=== PATIENT | male | born 1970 | race Caucasian/White ===

== ENCOUNTER → 2022-02-18 07:36 | Outpatient (CLI) | payer OTHER, SELFPAY ==
--- NOTE | ~2022-02-18 | MR_ITS ---
EXAMINATION: MR shoulder RT wo con DATE: 02/18/2022 08:27 INDICATION: Anterior right shoulder pain. TECHNIQUE: Magnetic resonance imaging (MRI) of the right shoulder was performed without intravenous c ontrast. Sequences included axial PD-weighted FS FSE, coronal oblique PD-weighted FS FSE and T2-weigh shannon FS FSE, and sagittal oblique T2-weighted FS FSE and T1-weighted FSE. COMPARISON: Right shoulder radiographs 12/22/2021 FINDINGS: Coracoacromial arch: The acromion undersurface is curved in morphology (type II). There is severe acromioclavicular joint osteoarthritis. There is mild subacromial/subdeltoid bursitis. Rotator cuff: There is mild supraspinatus and infraspinatus tendinopathy. Teres minor tendon is normal. There is mi ld subscapularis tendinopathy. There is no asymmetric fatty atrophy of the rotator cuff muscle bellie s. Biceps tendon and glenoid labrum: Biceps tendon is in bicipital groove. Intra-articular biceps tendon is normal. The glenoid labrum is normal. Fluid: There is no glenohumeral joint effusion. Bones/cartilage: Glenoid cartilage is normal. Humeral head cartilage is normal. IMPRESSION: 1. Severe acromioclavicular joint osteoarthritis. 2. Mild rotator cuff tendinopathy. No tear. 3. Mild subacromial/subdeltoid bursitis. Reviewed, dictated and finalized at location A. ENTING CELLARS RECEIVER
== END ==
PROVIDERS: PCP Internal Medicine Infectious Disease; Visit Provider Orthopaedic Surgery
DX: M19.011 Primary osteoarthritis, right shoulder (principal); M75.51 Bursitis of right shoulder
CPT/HCPCS: 73221

== ENCOUNTER 2022-04-10 09:26 | Outpatient (CLI) | payer OTHER, SELFPAY ==
--- NOTE | 2022-04-10 10:00 | ECG_ITS ---
Measurements Intervals [place] Rate: 68 P: 35 ME: 158 QRS: -11 QRSD: 85 T: 28 QT: 374 QTc: 398 Interpretive Statements SINUS RHYTHM CONSIDER INFERIOR INFARCT, AGE INDETERMINATE BASELINE ARTIFACT- AVL, AVF, V1 ABNORMAL ECG NO PREVIOUS ECG AVAILABLE FOR COMPARISON Electronically Signed On 04-10-2022 9:49:51 PATIENT ACCESS MANAGER by Myron Jackson D.O.
== END 2022-04-10 09:27 | disposition home or self-care (01) ==
PROVIDERS: PCP Internal Medicine Infectious Disease; Visit Provider Orthopaedic Surgery
DX: Z01.810 Encounter for preprocedural cardiovascular examination (principal); E78.5 Hyperlipidemia, unspecified; R94.31 Abnormal electrocardiogram [ECG] [EKG]
CPT/HCPCS: 93005

== ENCOUNTER 2022-04-14 01:19 | Day surgery (SDC) | payer OTHER, SELFPAY ==
[2022-04-04 15:31] VITALS: BMI 27.1
--- NOTE | 2022-04-04 15:38 | PC.NURSE ---
Report to the Outpatient Waiting Room, entrance under the green pavilion located off [facility], at time 10:00 on date 04/14/22. Planned Procedure Time: 12:00. Time changes happen often and if your time is changed the preop area will call you the afternoon before. - You and your visitor will be asked to self-screen and do not enter if you have any COVID symptoms. - Only one visitor is requested with a max of two and NO children visitors are allowed at this time. - The patient visitor may be requested to leave or wait in car when not with patient due to distancing restrictions. - A mask is REQUIRED within the hospital. Patients may have clear liquids (water, carbonated beverages, clear teas, apple juice) until 3 hours prior to surgery with a maximum of 20 ounces. - No food from midnight until time of surgery Take the following medications with a SIP of water the morning of surgery: CYMBALTA, GABAPENTIN Medications to discontinue per physician: VITAMINS/SUPPLEMENTS Date to take last dose: 04/10/22 Please no make-up, nail croatian, hairspray, perfume, deodorant, or body powder the day of surgery. No jewelry (including any body piercings) or valuables the day of surgery, leave them at home. Please take a shower or bath the night before, or the morning of, surgery with an antibacterial soap. Wear comfortable, loose fitting clothing. - Jewelry must be removed prior to entering the operating room. Rings and piercings that are not removed may be cut off. - The hospital will not accept responsibility for valuables. - Please leave all valuables, including medications, at home the day of surgery. If you are going home after surgery, a licensed automobile drivers must drive you home. - NO public transportation without another adult if you receive anesthesia. - We recommend that an adult stay with you for 24 hours following discharge. - We also recommend that you do not drive, make important decision, drink alcoholic beverages, or take any drugs that were not prescribed by your health care provider for at least 24 hours after your discharge time. Follow any additional instructions given to you from your surgeon. If you or anyone in your household have experienced Covid symptoms in the past week, please notify your surgeon or the nurse liaison at the phone number below for possible testing. Telephone instructions given to PT - ANUM PARKER and asked if any additional questions and then verbalized understanding. Patient advised to call surgeon office or pre surgery nurse liaison [phone] if any additional questions.
--- NOTE | 2022-04-13 09:20 | WPDANESEPPF ---
Anes - Initial Pre Proc Eval Procedure: Operation Date: 04/14/22 12:00 Proposed Procedures p Right Arthroscopic Subacromial Decompression, Distal Clavicle Excision, Proceed as Indicated - Ananth Paz MD Date/Time: 04/13/22 09:20 Surgeon: Ananth Paz MD Pre Op Diagnosis: right shoulder impingement syndrome, ac joint arth Patient Data Age: 52 Gender: M Height: 1.83 m Weight: 90.72 kg Allergies Allergy/AdvReac Type Severity Reaction Status Date / Time No Known Allergies Allergy Verified 04/14/22 10:19 Home Medications Medication Instructions Recorded Confirmed Type atorvastatin 40 mg tablet 40 mg PO DAILY 12/08/21 04/14/22 History cetirizine 10 mg tablet (Zyrtec) 10 mg PO DAILY 12/08/21 04/14/22 History coenzyme Q10 30 mg capsule (CoQ-10) 30 mg PO DAILY 12/08/21 04/14/22 History duloxetine 20 mg capsule,delayed 20 mg PO DAILY 12/08/21 04/14/22 History release fluticasone propionate 50 1 spray intranasal DAILY 12/08/21 04/14/22 History mcg/actuation nasal spray,suspension (Children's Flonase Allergy Relief) gabapentin 400 mg capsule 400 mg PO DAILY 12/08/21 04/14/22 History olopatadine 665 mcg-mometasone 25 2 spray intranasal BID 12/08/21 04/04/22 History mcg/spray nasal spray Patient hx anesthesia problems: none Family hx anesthesia problems: none Results Review: All pre-operative results and documents have been reviewed as part of the pre-operative evaluation. [facility] Past Medical History Medical History (Updated 04/13/22 @ 09:20 by Freddy Ann DO) Chronic neck pain Hyperlipidemia Restless leg syndrome Rotator cuff impingement syndrome of right shoulder Tonsillitis and adenoiditis, chronic (~1972) Surgical History Surgical History H/O knee surgery left knee surgery 1984 S/P epidural steroid injection injection in the neck 2011 Family History Family History Unknown Cancer ALS (amyotrophic lateral sclerosis) Kidney disease Social History Social History Smoking status: Never smoker Alcohol intake: current Drinks per week: 4 Alcohol use details: 2-3 drinks Substance use: current Substance use type: marijuana Lack of Transportation: No Lack of Food: Never True Current Housing: I Have Housing Concerned About Future Housing: No Difficulty Paying Gas/Electric Bills: No Difficulty Paying for Meds: No Currently Unemployed: No Education: Bachelor's Degree Difficulty w/ Childcare or Family Care: No Living arrangements: with family Spiritual care concerns: No Anes - Eval Final PreProcedure Day of Procedure 04/13/22 09:20 Patient weight: overweight Heart: regular rate and rhythm Lungs: clear to auscultation Airway: Mallampati scale class II Neurological: alert and oriented Last oral intake: >/= 8 hours ASA classification: III Emergent: no Anesthetic plan: proceed Anesthesia type and monitoring: general ETT and standard monitoring Results Review: All pre-operative results and documents have been reviewed as part of the pre-operative evaluation. Informed Consent: The patient's anesthetic plan and its attendant risks and benefits were discussed with the patient/family/POA. Questions were solicited and answers provided to the satisfaction of the patient/family/POA.
[2022-04-14] VITALS (9 sets, daily range): BP systolic 113–150; BP diastolic 67–95; PULSE 66–77; RESP 13–16; TEMP 36.5–36.7; O2SAT 99–100
[2022-04-14] MEDS: ACETAMINOPHEN 500 MG TABLET 1000 MG PO (10:36)
[2022-04-14] MEDS: LACTATED RINGERS 1,000 ML 30 ML IV CONT ×2 (10:43→14:02)
[2022-04-14] MEDS: KETOROLAC 15 MG/ML VIAL (*BKC) IV PUSH (11:59)
--- NOTE | 2022-04-14 11:59 | WPDHPUPDATE1 ---
History and Physical Update Update Date/Time: 04/14/22 11:59 History and Physical has been reviewed, including an updated exam of the patient. There are NO changes in the patient's condition. Risks, benefits, and alternatives have been discussed and questions answered. Patient agrees to proceed with procedure.
--- NOTE | 2022-04-14 12:05 | WPDANESPNB ---
Anes - Peripheral Nerve Block Date/Time: 04/14/22 12:05 I have discussed with the patient/family/POA the placement of a peripheral nerve block for post-operative pain management, including associated risks, benefits, complications, and side effects. Alternative methods of post-operative analgesia were detailed. Questions were solicited and answers provided to the satisfaction of the patient/family/POA. Time-Out: A pre-procedural Time-Out was completed immediately before starting the procedure and confirmed: Patient Identification, Site, Procedure, Patient Position and the Availability of Requisite Equipment. Clinical Indications: Acute post-operative pain management requested by the operative surgeon. Nerve Block Insertion Note Anes-nerve block: interscalene right Patient position: supine Skin prep: chlorhexidine Needle: 22 gauge, stimulating, insulated echogenic needle. Needle length: 50 mm Technique: ultrasound Injectate: bupivacaine 0.5% with epi 5 mcg/ml (30cc- no epi) Observations: tolerated well Complications: none Procedure start time:: 1159 Procedure end time:: 1203
[2022-04-14] MEDS: ceFAZolin 2 GM/D5W 50 ML 2 GM/50 ML BAG IVPB (12:11)
--- NOTE | 2022-04-14 17:26 | W.PM.PROC2 ---
Procedure Note - Detailed Date of Procedure 04/14/22 Pre-op Diagnosis Right shoulder impingement syndrome, a/c joint arthrosis Post-op Diagnosis Other (1. Partial thickness rotator cuff tear 2. Impingement syndrome 3. A/C joint arthrosis) Procedure Performed Arthroscopic right shoulder 1. rotator cuff debridement 2. subacromial debridement 3. distal clavicle excision Surgeon Ananth Paz MD Ground Host/Hostess Daisy Lezama PA-C Anesthesia General and Regional ( interscalene block) Findings Low grade bursal and articular supraspinatus tears , less than 15% thickness. Low grade degenerative labral fraying and minimal humeral chondrosis posteriorly. Evidence for subacromial impingement. Description of Procedure Preoperative antibiotics were given. An interscalene block was administered in the preoperative area. The patient was bought brought to the operating room. A general anesthetic was administered. The patient was carefully positioned in the beach chair position. The head and neck were carefully positioned. The non operative extremity was also carefully positioned. The shoulder was prepped and draped in the usual sterile fashion. Examination was performed. Standard posterior and anterior arthroscopic portals were established. Inflow achieved with the arthroscopic pump using saline and epinephrine. The glenohumeral joint was carefully inspected. Debridemnet of the very low grade anterior cuff tear and mild anterior, superior and posterior labral degeneration was performed with the arthroscopic shaver. The biceps was pulled into the joint, and appeared normal. The posterior humerus showed grade 1 chondromalacia. Attention was turned to the subacromial space. A complete bursectomy was performed. The supraspinatus was fraying. Low grade tear consistent with the fraying noted on the undersurface of the acromion and CA ligament. The rotator cuff was gently debrided. A modest acromioplasty was performed. The distal clavicle was exposed arthroscopically and approximately 1cm of bone was resected. The arthroscopic instruments were removed. The wounds were closed with 3-0 Monocryl subcuticular suture and steri strips. There were no complications. A sling was applied and the patient brought to the recovery room. Physician assistant corporate controller, Daisy Lezama PA-C, required for surgery; including patient positioning, draping, arthroscopic camera operation, maintaining instrument position, wound closure, and dressing and sling placement. Estimated Blood Loss -20.0 Pathology None sent Complications No immediate complications Condition Stable Disposition PACU [facility] Billing Surgery - Charge Forward: Surgery Billing
== END 2022-04-14 15:42 | disposition home or self-care (01) ==
PROVIDERS: PCP Internal Medicine Infectious Disease; Visit Provider Orthopaedic Surgery
PROC: (CPT 29805; principal; 2022-04-14 12:00)
DX: M75.111 Incomplete rotator cuff tear or rupture of right shoulder, not specified as traumatic (principal); M75.41 Impingement syndrome of right shoulder; M19.011 Primary osteoarthritis, right shoulder; M75.81 Other shoulder lesions, right shoulder; M94.211 Chondromalacia, right shoulder; G89.18 Other acute postprocedural pain; E78.5 Hyperlipidemia, unspecified; G25.81 Restless legs syndrome; F12.90 Cannabis use, unspecified, uncomplicated
CPT/HCPCS: 29824; 64415; 93005; A4565; A9270; J0690; J1100; J1170; J1885; J2250; J2704; J2710; J3010; J7120

== ENCOUNTER 2024-12-23 09:09 | Outpatient (CLI) | payer OTHER, SELFPAY ==
--- OUTSIDE RECORDS SUMMARY | 2023-09-08 16:30 | XMS_ITS ---
Author Organization [facility] ([address]) Address [address] [place] [address] Care Team Providers Care Head Rigger Name Role Phone Henry Lyons Primary Care Provider UnavailRasheed Guevara Unavailable [phone] Bertha Gomez Unavailable Unavailable ZZ-Migration, Provider Unavailable Unavailab le REASON FOR VISIT [facility] Encounter Medications Medication SIG (Take, Route, Frequency, Duration) Notes Start Date End Date Status Vanicream N/A ONE PUMP APPLY GENEROUS AMOUNT TO WET SKIN, LATHER, RINSE AND PAT DRY WITH TOWEL PRN; Duration: 30 DAY(S) *Please review and pick correct strength-formulati on from [facility] options. If intended option is not shown, discontinue and re-order from Quick Search* Active Cetirizine HCl 10 MG 1 tab(s) orally once a day Active OLOPATADINE HYDROCHLORIDE 665 MCG/INH 2 SPRAY(S) INTRANASALLY 2 TIMES A DAY; Duration: 90 DAYS *Please review for potential replacement for e-prescription and drug interaction check* Active NASAL WASHES N/A DIRECTED INTRANASALLY NEEDED; Duration: 30 *Please review for potential replacement for e-prescription and drug interaction check* Active Fluticasone Propionate 50 MCG/ACT 2 spray(s) in each nostril BID; Duration: 30 day(s) Active Finasteride 5 MG 1 tab(s) orally once a day Active Lipitor 10 MG 1 tab(s) orally once a day Active PIMECROLIMUS TOPICAL 1% 1 MAIN APPLIED TOPICALLY 2 TIMES A DAY *Please review for potential replacement for e-prescription and drug interaction check* Active Nizoral *Please review a nd pick correct strength-formulati on from [facility] options. If intended option is not shown, discontinue and re-order from Quick Search* Active Tamsulosin HCl 0.4 MG 1 cap(s) orally once a day Active Gabapentin 400 MG 1 cap(s) orally 3 times a day Active DULoxetine HCl 30 MG 1 cap(s) orally 2 times a day Active Encounters Encounter Location Date Provider Diagnosis [place] [address] [place] [address] 09/08/2023 Provider Casimiro Allergic rhinitis due to pollen J30.1 Assessments Encounter Date Diagnosis (ICD Code) Assessment Notes Treatment Notes Treatment Clinical Notes Section Notes 09/08/2023 Allergic rhinitis due to pollen (ICD-10 - J30.1) Plan Of Treatment Medication Medication Name Sig Start Date Stop Date Notes Vanicream N/A ONE PUMP APPLY GENEROUS AMOUNT TO WET SKIN, LATHER, RINSE AND PAT DRY WITH TOWEL PRN; Duration: 30 DAY(S) *Please review and pick correct strength-formulation from [facility] options. If intended option is not shown, discontinue and re-order from Quick Search* Cetirizine HCl 10 MG 1 tab(s) orally onc e a day OLOPATADINE HYDROCHLORIDE 665 MCG/INH 2 SPRAY(S) INTRANASALLY 2 TIMES A DAY; Duration: 90 DAYS *Please review for potential replacement for e-prescription and drug interaction check* NASAL WASHES N/A DIRECTED INTRANASALLY NEEDED; Duration: 30 *Please review for potential replacement for e-prescription and drug interaction check* Fluticasone Propionate 50 MCG/ACT 2 spray(s) in each nostril BID; Duration: 30 day(s) Finasteride 5 MG 1 tab(s) orally once a day Lipitor 10 MG 1 tab(s) orally once a day PIMECROLIMUS TOPICAL 1% 1 MAIN APPLIED TOPICALLY 2 TIMES A DAY *Please review for potential replacement for e-prescription and drug interaction check* Nizoral *Please review and pick correct strength-formulation from [facility] options. If intended option is not shown, discontinue and re-order from Quick Search* Tamsulosin HCl 0.4 MG 1 cap(s) orally on ce a day Gabapentin 400 MG 1 cap(s) orally 3 times a day DULoxetine HCl 30 MG 1 cap(s) orally 2 times a day Progress Notes * Marquis PARKERDOB:1970 (54 yo M)Acc No.[id number]:09/08/2023 Patient: Marquis STEELE Provider: Elena marsh Migration :1970 A ge:53 Y S ex:Male Date:09/08/2023 Address:[address] [place] [address] Pcp:Henry Lyons Subjective: * Chief Complaints: * 1 . [facility] En[facility]. * Medical History: Objective: * Vitals: Assessment: * Assessment: 1. A llergic rhinitis due to pollen - J30.1 (Primary) Plan: * Treatment: 2. O thers Continue Gabapentin Capsule, 400 MG, 1 cap(s), orally, 3 times a day; C ontinue DULoxetine HCl Capsule Delayed Release Particles, 30 MG, 1 cap(s), orally, 2 times a day; C ontinue Tamsulosin HCl Capsule, 0.4 MG, 1 cap(s), orally, once a day; C ontinue Finasteride Tablet, 5 MG, 1 tab(s), orally, once a day; C ontinue Lipitor Tablet, 10 MG, 1 tab(s), orally, once a day; C ontinue PIMECROLIMUS TOPICAL CREAM, 1%, 1 MAIN, APPLIED TOPICALLY, 2 TIMES A DAY, Notes to Pharmacist: *Please review for potential replacement for e-prescription and drug interaction check*; Jen russell Nizoral, Notes to Pharmacist: *Please review and pick correct strength-formulation from [facility] options. If intended option is not shown, discontinue and re-order from Quick Search*; Jen russell Vanicream LIQUID CLEANSER, N/A, ONE PUMP, APPLY GENEROUS AMOUNT TO WET SKIN, LATHER, RINSE AND PAT DRY WITH TOWEL, PRN, 30 DAY(S), 8 FL. OZ. (237 ML), Refills PRN, Notes to Pharmacist: *Please review and pick correct strength-formulation from [facility] options. If intended option is not shown, discontinue and re-order from Quick Search*; S tart Fluticasone Propionate Suspension, 50 MCG/ACT, 2 spray(s), in each nostril, BID, 30 day(s), 1, Refills 2. * Billing Information: * Visit Code: * Procedure Codes: * Electronic signature of Larry MOROCHO-Migration on 12/23/2024 at 09:50 AM CDT Sign off status: Pending * Provider: Elena marsh Migration Date: 0 09/08/2023 Generated for Jesús du/Nereyda/Leilani on: 0 12/23/2024 09:50 AM CDT
--- NOTE | ~2024-12-23 | XR_ITS ---
Abdominal radiograph(s) INDICATION: Kidney stone COMPARISON: None TECHNIQUE: 2 view supine AP abdomen FINDINGS: Lung bases clear. Scattered colonic stool. Scattered small bowel gaseous distention. No evidence of organomegaly. No abnormal abdominal calcifications. No acute bony abnormality. Small metallic coil overlying left symphysis pubis. IMPRESSION: 1. No nephroureteral calculi identified. 2. No other acute findings identified. Reviewed, dictated and finalized at location R.
--- OUTSIDE RECORDS SUMMARY | 2024-12-23 09:50 | XMS_ITS | Encounter Summary ---
Author Organization [facility] Address [address] [place] [address] Phone Care Team Providers Care Adobe Ball Mixer Name Role Phone Henry Lyons MD Primary Care Provider [phone] Bridgette Suárez MD Unavailable Bertha Gomez MD Unavailable [phone] Ja Cantor MD Unavailable [phone] Huber Olson MD Unavailable [phone] Sheila Henderson NP Unavailable [phone] Jude Jean DO Unavailable [phone] Encounter Details Date Type Department Care Team (Late st Contact Info) Description 02/02/2022 Orders Only [facility] [address] [place] [address] Henry Lyons MD [address] [place], [place] [id number] Social History Tobacco Use Types Packs/Day Years Used Date Smoking Tobacco: Former Cigarettes 0.2 4 0 09/24/1999 - 09/24/2003 Smokeless Tobacco: Never Comments:Social smoker. Alcohol Use Standard Drinks/Week Comments Not Currently 0 (1 standard drink = 0.6 oz pur e alcohol) PHQ-2 Answer Date Recorded PHQ-2 Total Score (If total score is 3 or more points, staff should administer the PHQ-9) 0 03/21/2021 Sex and Gender Information Value Date Recorded Sex Assigned at Not on file Legal Sex Male 8:27 AM ASSOCIATE ACCOUNTANT Gender Identity Male 04/10/2019 1:52 PM ASSOCIATE ACCOUNTANT Sexual Orientation Straight 04/10/2019 1: 52 PM ASSOCIATE ACCOUNTANT documented as of this encounter Plan of Treatment Upcoming Encounters Date Type Department Care Team (Late st Contact Info) Description 03/05/2026 8:00 AM ASSOCIATE ACCOUNTANT Hospital Encounter [address] [address] Milad Jaeger MD [address] [place] [address] 03/05/2026 8:00 AM ASSOCIATE ACCOUNTANT - 03/05/2026 8:30 AM ASSOCIATE ACCOUNTANT Surgery [address] [address] Milad Jaeger MD [address] [place] [address] COLONOSCOPY Scheduled Procedures Name Priority Associated Diagnoses Date/Ti me COLONOSCOPY Family history of colon cancer History of colonic polyps Encounter for screening colonoscopy 03/05/2026 8:00 AM ASSOCIATE ACCOUNTANT documented as of this encounter Procedures Procedure Name Priority Date/Time Associated Diagnosis Comments SCAN - RADIOLOGY/IMAGING 02/02/2022 documented in this encounter Results * SCAN - RADIOLOGY/IMAGING (02/02/2022) Anatomical Region Laterality Modality Other us Henry Lyons MD Final Result documented in this encounter Visit Diagnoses Not on filedocumented in this encounter Care Teams Adobe Ball Mixer Relationship Specialty Start Date End Date Henry Lyons MD [address] [place] [address] PCP - General Infectious Diseases 12/13/18 Bridgette Suárez MD [address] [place] [address] Consulting Physician Neurology 04/19/19 Bertha Gomez MD [address] [place], [place] [id number] Consulting Physician Dermatology 07/30/19 Ja Cantor MD [address] [facility] [place] [id number] Consulting Physician Allergy and Immunology 07/26/20 Huber Olson MD [address] [facility] [address] [place] [address] Consulting Physician Urology 04/21/21 Sheila Henderson, HANNA [address] [place] [address] [address], [place] [address] Nurse Practitioner Sleep Medicine 01/29/23 [place] [address] [place] [address] Consulting Physician Interventional Radiology 10/22/23 documented as of this encounter
--- OUTSIDE RECORDS SUMMARY | 2024-12-23 09:50 | XMS_ITS | Patient Health Record ---
Author Organization [facility] [address] ([address]) Address [address] [place] [address] Care Team Providers Care Steamtable Worker Name Role Phone Henry Lyons Primary Care Provider UnavailRasheed Guevara Unavailable [phone] Bertha Gomez Unavailable Unavailable Allergies No Known Allergies Reason For Referral No Information Medications Medication SIG (Take, Route, Frequency, Duration) Notes Start Date End Date Status FLUTICASONE NASAL 50 mcg/inh 2 spray(s) in each nostril BID; Duration: 30 day(s) Active VANICREAM N/A one pump apply generous amount to wet skin, lather, rinse and pat dry with towel PRN; Duration: 30 day(s) Active NIZORAL Active Tamsulosin HCl 0.4 MG 1 cap(s) orally once a day Active DULOXETINE 30 mg 1 cap(s) orally 2 times a day Active Finasteride 5 MG 1 tab(s) orally once a day Active GABAPENTIN 400 mg 1 cap(s) orally 3 times a day Active Lipitor 10 MG 1 tab(s) orally once a day Active CETIRIZINE HYDROCHLORIDE 10 mg 1 tab(s) orally once a day Active PIMECROLIMUS TOPICAL 1% 1 MAIN APPLIED TOPICALLY 2 TIMES A DAY *Please review for potential replacement for e-prescription and drug interaction check* Active Nizoral *Please review a nd pick correct strength-formulati on from Medispan options. If intended option is not shown, discontinue and re-order from Quick Search* Active Vanicream N/A ONE PUMP APPLY GENEROUS AMOUNT TO WET SKIN, LATHER, RINSE AND PAT DRY WITH TOWEL PRN; Duration: 30 DAY(S) *Please review and pick correct strength-formulati on from SecurActive options. If intended option is not shown, discontinue and re-order from Quick Search* Active LIPITOR 10 mg 1 tab(s) orally once a day Active FINASTERIDE 5 mg 1 tab(s) orally once a day Active Cetirizine HCl 10 MG 1 tab(s) orally once a day Active TAMSULOSIN 0.4 mg 1 cap(s) orally once a day Active OLOPATADINE HYDROCHLORIDE 665 MCG/INH 2 SPRAY(S) INTRANASALLY 2 TIMES A DAY; Duration: 90 DAYS *Please review for potential replacement for e-prescription and drug interaction check* Active Gabapentin 400 MG 1 cap(s) orally 3 times a day Active NASAL WASHES N/A DIRECTED INTRANASALLY NEEDED; Duration: 30 *Please review for potential replacement for e-prescription and drug interaction check* Active DULoxetine HCl 30 MG 1 cap(s) orally 2 times a day Active Fluticasone Propionate 50 MCG/ACT 2 spray(s) in each nostril BID; Duration: 30 day(s) Active Social History Tobacco Use: Social History Observation Description Date Details (start date - stop date) Never Smoker NA - NA Smoking Smart Form: Question Answer Notes Are you a: never smoker Problems Problem Type SNOMED Code ICD Code Onset Dates Problem Status W/U Status Risk Notes Problem Eruption of skin (783231580) Rash and other nonspecific skin eruption (R21) Active confirmed Problem Hyperlipidemia (12782552) Hyperlipidemia, unspecified (E78.5) Active confirmed Problem Restless legs syndrome (89826534) Restless legs syndrome (G25.81) Active confirmed Problem Chronic pain syndrome (395760374) Chronic pain syndrome (G89.4) Active confirmed Problem Allergic contact dermatitis (549455007) Allergic contact dermatitis, unspecified cause (L23.9) Active confirmed Problem Allergic rhinitis caused by pollen (disorder) (20693187) Allergic rhinitis due to pollen (J30.1) Active confirmed Problem Allergic rhinitis (86940457) Other allergic rhinitis (J30.89) Active confirmed Problem Chronic allergic conjunctivitis (39614631) Other chronic allergic conjunctivitis (H10.45) Active confirmed Problem Chronic sinusitis (00080883) Other chronic sinusitis (J32.8) Active confirmed Problem Lower urinary tract symptoms due to benign prostatic hypertrophy (59367647765257) Benign prostatic hyperplasia with lower urinary tract symptoms (N40.1) Active confirmed Plan Of Treatment No Information Insurance Providers Payer Name Payer Address Payer Phone Subscriber Number Group Number Insured Name Patient Relationship to Insured Coverage Start Date Coverage End Date [employer] Choice POS [place] [address] [address] [place] [address] [id number] Ngoc Montes De Oca Spouse - patient is the spouse of the insured Medical (General) History Medical History History ICD Code Hyperlipidemia, unspecified E78.5 Benign prostatic hyperplasia with lower urinary tract symptoms N40.1 Restless legs syndrome G25.81 Chronic pain syndrome G89.4 Allergic contact dermatitis, unspecified cause L23.9 Allergic rhinitis due to pollen J30.1 Other allergic rhinitis J30.89 Other chronic allergic conjunctivitis H1 0.45 Other chronic sinusitis J32.8 Surgical History Surgery Date(Month/Year) Prostate surgery 05/2021
--- OUTSIDE RECORDS SUMMARY | 2024-12-23 09:50 | XMS_ITS | Encounter Summary ---
Author Organization [facility] Address [address] [place] [address] Phone Care Team Providers Care Wireless Sales Consultant Name Role Phone Henry Lyons MD Primary Care Provider [phone] Bridgette Suárez MD Unavailable Bertha Gomez MD Unavailable [phone] Ja Cantor MD Unavailable [phone] Huber Olson MD Unavailable [phone] Sheila Henderson NP Unavailable [phone] Jude Jean DO Unavailable [phone] Encounter Details Date Type Department Care Team (Late st Contact Info) Description 12/22/2021 Orders Only [facility] [address] [place] [address] Scanning, Provider Social History Tobacco Use Types Packs/Day Years [...] on file Legal Sex Male 8:27 AM MANAGER CUSTOM Gender Identity Male 04/10/2019 1:52 PM MANAGER CUSTOM Sexual Orientation Straight 04/10/2019 1: 52 PM MANAGER CUSTOM documented as of this encounter Plan of Treatment Upcoming Encounters Date Type Department Care Team (Late st Contact Info) Description 03/05/2026 8:00 AM MANAGER CUSTOM Hospital Encounter [facility] [address] [place] [address] Milad Jaeger MD [address] [facility] [address] [place] [address] 03/05/2026 8:00 AM MANAGER CUSTOM - 03/05/2026 8:30 AM MANAGER CUSTOM Surgery [address] [address] Milad Jaeger MD [address] [facility] [address] [place] [address] COLONOSCOPY Scheduled Procedures Name Priority Associated Diagnoses Date/Ti me COLONOSCOPY Family history of colon cancer History of colonic polyps Encounter for screening colonoscopy 03/05/2026 8:00 AM MANAGER CUSTOM documented as of this encounter Procedures Procedure Name Priority Date/Time Associated Diagnosis Comments SCAN - RADIOLOGY/IMAGING 12/22/2021 documented in this encounter Results * SCAN - RADIOLOGY/IMAGING (12/22/2021) Anatomical Region Laterality Modality Other us Provider Scanning Final Result documented in this encounter Visit Diagnoses Not on filedocumented in this encounter Care Teams Wireless Sales Consultant Relationship Specialty Start Date End Date Henry Lyons MD [address] [place] [address] PCP - General Infectious Diseases 12/13/18 Bridgette Suárez MD [address] [place] [address] Consulting Physician Neurology 04/19/19 Bertha Gomez MD [address] [place] [address] Consulting Physician Dermatology 07/30/19 Ja Cantor MD [address] [place], [place] [id number] Consulting Physician Allergy and Immunology 07/26/20 Huber Olson MD [address] [facility] [place], [place] [id number] Consulting Physician Urology 04/21/21 Sheila Henderson, HANNA [address] [place] [address] [address] [place] [address] Nurse Practitioner Sleep Medicine 01/29/23 [place] [address] [place] [address] Consulting Physician Interventional Radiology 10/22/23 documented as of this encounter
--- OUTSIDE RECORDS SUMMARY | 2024-12-23 09:50 | XMS_ITS | Encounter Summary ---
Author Organization [facility] Address [address] [place] [address] Phone Care Team Providers Care Science Center Display Builder Name Role Phone Henry Lyons MD Primary Care Provider [phone] López Monroe MD Unavailable [phone] Bridgette Suárez MD Unavailable Bertha Gomez MD Unavailable [phone] Ja Cantor MD Unavailable [phone] Huber Olson MD Unavailable + [phone] Sheila Henderson NP Unavailable Jude Jean DO Unavailable [phone] Encounter Details Date Type Department Care Team (Late st Contact Info) Description 02/15/2020 Orders Only [facility] [address] [place] [address] Scanning, Provider Social History Tobacco [...] points, staff should administer the PHQ-9) 0 02/12/2020 Sex and Gender Information Value Date Recorded Sex Assigned at Not on file Legal Sex Male 8:27 AM STAFF NUCLEAR WEAPONS OFFICER Gender Identity Male 04/10/2019 1:52 PM STAFF NUCLEAR WEAPONS OFFICER Sexual Orientation Straight 04/10/2019 1: 52 PM STAFF NUCLEAR WEAPONS OFFICER documented as of this encounter Plan of Treatment Upcoming Encounters Date Type Department Care Team (Late st Contact Info) Description 03/05/2026 8:00 AM STAFF NUCLEAR WEAPONS OFFICER Hospital Encounter [address] [address] Milad Jaeger MD [address] [facility] [address] [place] [address] 03/05/2026 8:00 AM STAFF NUCLEAR WEAPONS OFFICER - 03/05/2026 8:30 AM STAFF NUCLEAR WEAPONS OFFICER Surgery [address] [address] Milad Jaeger MD [address] [facility] [address] [place] [address] COLONOSCOPY Scheduled Procedures Name Priority Associated Diagnoses Date/Ti me COLONOSCOPY Family history of colon cancer History of colonic polyps Encounter for screening colonoscopy 03/05/2026 8:00 AM STAFF NUCLEAR WEAPONS OFFICER documented as of this encounter Procedures Procedure Name Priority Date/Time Associated Diagnosis Comments SCAN - LABS 02/15/2020 documented in this encounter Results * SCAN - LABS (02/15/2020) Provider Scanning Final Result documented in this encounter Visit Diagnoses Not on filedocumented in this encounter Care Teams Science Center Display Builder Relationship Specialty Start Date End Date Henry Lyons MD [address] [place] [address] PCP - General Infectious Diseases 12/13/18 López Monroe MD [address] [place] [address] Consulting Physician Urology 04/10/19 05/15/21 Bridgette Suárez MD [address] [place] [address] Consulting Physician Neurology 04/19/19 Bertha Gomez MD [address] [place] [address] Consulting Physician Dermatology 07/30/19 Ja Cantor MD [address] [place] [address] Consulting Physician Allergy and Immunology 07/26/20 Huber Olson MD [address] [facility] [address] Consulting Physician Urology 04/21/21 Sheila Henderson, HANNA [address] [place] [address] [address] [place] [address] Nurse Practitioner Sleep Medicine 01/29/23 [place] [address] [place] [address] Consulting Physician Interventional Radiology 10/22/23 documented as of this encounter
--- OUTSIDE RECORDS SUMMARY | 2024-12-23 09:50 | XMS_ITS | Encounter Summary ---
Author Organization [facility] ts Address [address] [place] [address] Phone Care Team Providers Care Paper Cutter Name Role Phone Henry Lyons MD Primary Care Provider [phone] López Monroe MD Unavailable [phone] Bridgette Suárez MD Unavailable Bertha Gomez MD Unavailable [phone] Ja Cantor MD Unavailable [phone] Huber Olson MD Unavailable [phone] Sheila Henderson NP Unavailable Jude Jean DO Unavailable [phone] Encounter Details Date Type Department Care Team (Late st Contact Info) Description 10/09/2019 Orders Only [facility] [address] [place] [address] Scanning, Provider Social History Tobacco Use Types Packs/Day Years Used Date Smoking Tobacco: Former Smokeless Tobacco: Never Alcohol Use Standard Drinks/Week Comments Not Currently 0 (1 standard drink = 0.6 oz pur e alcohol) Sex and Gender Information Value Date Recorded Sex Assigned at Not on file Legal Sex Male 8:27 AM HYDROGENATION OPERATOR Gender Identity Male 04/10/2019 1:52 PM HYDROGENATION OPERATOR Sexual Orientation Straight 04/10/2019 1: 52 PM HYDROGENATION OPERATOR documented as of this encounter Plan of Treatment Upcoming Encounters Date Type Department Care Team (Late st Contact Info) Description 03/05/2026 8:00 AM HYDROGENATION OPERATOR Hospital Encounter [facility] [address] [place] [address] Milad Jaeger MD [address] [facility] [address] [place] [address] 03/05/2026 8:00 AM HYDROGENATION OPERATOR - 03/05/2026 8:30 AM HYDROGENATION OPERATOR Surgery [address] [address] Milad Jaeger MD [address] [facility] [address] [place] [address] COLONOSCOPY Scheduled Procedures Name Priority Associated Diagnoses Date/Ti me COLONOSCOPY Family history of colon cancer History of colonic polyps Encounter for screening colonoscopy 03/05/2026 8:00 AM HYDROGENATION OPERATOR documented as of this encounter Procedures Procedure Name Priority Date/Time Associated Diagnosis Comments SCAN - LABS 10/09/2019 documented in this encounter Results * SCAN - LABS (10/09/2019) us Provider Scanning Final Result documented in this encounter Visit Diagnoses Not on filedocumented in this encounter Care Teams Paper Cutter Relationship Specialty Start Date End Date Henry Lyons MD [address] [place] [address] PCP - General Infectious Diseases 12/13/18 López Monroe MD [address] [place] [address] Consulting Physician Urology 04/10/19 05/15/21 Bridgette Suárez MD [address] [place] [address] Consulting Physician Neurology 04/19/19 Bertha Gomez MD [address] [place] [address] Consulting Physician Dermatology 07/30/19 Ja Cantor MD [address] [place] [address] Consulting Physician Allergy and Immunology 07/26/20 Huber Olson MD [address] [place] [address] Consulting Physician Urology 04/21/21 Sheila Henderson, HANNA [address] [place] [address] [address] [place] [address] Nurse Practitioner Sleep Medicine 01/29/23 [place] [address] [place] [address] Consulting Physician Interventional Radiology 10/22/23 documented as of this encounter
--- OUTSIDE RECORDS SUMMARY | 2024-12-23 09:50 | XMS_ITS | Clinical Summary ---
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 Role Phone Benjy Chen MD Primary Care Provider [phone] Bridgette Suárez MD Unavailable Bertha Gomez MD Unavailable [phone] Ja Cantor MD Unavailable [phone] Huber Olson MD Unavailable [phone] Sheila Henderson NP Unavailable [phone] Jude Jean DO Unavailable [phone] Allergies No known active allergies Medications acetaminophen (TYLENOL ORAL) Take by mouth daily as needed Active multivitamin capsule Take 1 capsule by mouth daily Active ubidecarenone (COENZYME Q10) 100 mg tablet Take 1 tablet by mouth daily Active ketoconazole 1 % shampoo Apply 1 application topically 2 (two) times a week 06/19/19 20 Active cetirizine (ZyrTEC) 10 mg tablet Take 1 tablet (10 mg total) by mouth daily 07/27/19 21 Active cyanocobalamin (Vitamin B-12) 1,000 mcg tablet Take 1 tablet (1,000 mcg total) by mouth daily 06/23/19 23 Active pimecrolimus (ELIDEL) 1 % creamIndications:S eborrheic dermatitis Apply 1 Application topically every 12 (twelve) hours as needed (Seborrhea) 30 g 1 01/03/20 24 Active fluticasone propionate (FLONASE) 50 mcg/actuation nasal spray Administer 1 spray into each nostril daily as needed for rhinitis 01/03/20 24 Active gabapentin (NEURONTIN) 400 mg capsule TAKE 1 CAPSULE BY MOUTH AT BEDTIME 30 capsule 2 07/22/19 25 Active olopatadine 0.6 % spray,non-aerosol every 12 hours Active atorvastatin (LIPITOR) 40 mg tabletIndications: Mixed hyperlipidemia Take 1 tablet (40 mg total) by mouth daily 90 tablet 3 12/09/19 25 Active cloNIDine (CATAPRES) 0.1 mg tabletIndications: Elevated blood pressure reading Take 1 tablet (0.1 mg total) by mouth 2 (two) times a day as needed for high blood pressure (For SBP 150, or for DBP over 90.) 60 tablet 12/09/19 25 Active famotidine (PEPCID) 20 mg tablet Take 1 tablet (20 mg total) by mouth graphics specialist before breakfast 10/15/19 24 024 Discontin ued(Expir ed) atorvastatin (LIPITOR) 40 mg tabletIndications: Mixed hyperlipidemia Take 1 tablet (40 mg total) by mouth daily 90 tablet 3 01/03/20 24 025 Discontin ued([facility]) Hospital, Clinic, or Other Facility Administered Medication Ordered Dose Route Frequency Start Date End Date Status lidocaine (XYLOCAINE) 20 mg/mL (2 %) injection 0.5 mLIndications:Administr ation of Local Anesthesia .5 mL One-Time Injection 12/03/2024 5 Ended methylPREDNISolone acetate (DEPO-medrol) injection 80 mgIndications:Arthritis of left acromioclavicular joint 80 mg intra-ainsley c One-Time Injection 12/03/2024 5 Ended Active Problems Problem Noted Date Diagnosed Date Family history of colon cancer 12/03/2024 History of colonic polyps 12/03/2024 Encounter for screening colonoscopy 12/03/2024 Hx of colonic polyps 07/03/2022 Overview (07/03/2022): Added automatically from request for surgery [id number] Low serum vitamin B12 06/21/2022 Elevated blood pressure reading 03/21/2021 Assessment & Plan (06/26/2023 4:43 AM CDT): We are monitoring a sometimes borderline elevation of diastolic blood pressure. Blood pressure looks good today. BP: 122/72 Assessment & Plan (06/21/2022 4:17 PM CDT): Diastolic is somewhat borderline, we will continue to monitor. Return annually, or sooner if needed. Assessment & Plan (03/27/2021 3:38 PM POST ACUTE CARE NURSE): His diastolic blood pressure was borderline today. He has a blood pressure cuff at home but has not been checking. We asked him to start doing that and call us if there are consistent elevations so we can intervene if needed. Multiple allergies 07/26/2020 Overview (08/01/2020): Saw Dr. Ja Cantor, 168 hour patch test applied. Assessment & Plan (01/06/2024 7:36 PM CDT): Chronic, present for four or more years, improved on OTC cetirizine 10 mg daily an fluticasone nasal spray as needed. Continue same. He no longer uses olopatadine nasal spray. Assessment & Plan (10/15/2021 9:56 AM CDT): He sees Dr. Ja Cantor. He takes Zyrtec and Flonase. Assessment & Plan (03/21/2021 3:50 PM POST ACUTE CARE NURSE): He sees Dr. Cantor. He is on several medications. Continue same. He has a follow-up soon for re-evaluation. Overweight 06/03/2020 Assessment & Plan (10/15/2021 9:56 AM CDT): He is working on losing weight. His father is dying in a assisted and this has made him reassess his own life choices. We will see him back in six months. We will check labs in the interim. Assessment & Plan (03/27/2021 3:37 PM POST ACUTE CARE NURSE): He is borderline obese at this point. His diet has deteriorated. He tries to eat right at home, but eats a fair amount of fast food. We encouraged better attention to his diet, and hopefully some weight loss. He also plans to get back into the gym. Kidney stone 01/21/2020 Overview (06/24/2023): [facility], see scanned report, followed up with urology. CT KUB on 01/21/2020: 6 mm stone at the right urine vesicle junction resulting in mild right-sided hydronephrosis. Recurrence 01/05/2023, cystoscopy and left ureteral stent, VIN Wang. >>OVERVIEW FOR KIDNEY STONE ON LEFT SIDE WRITTEN ON 06/24/2023 12:15 PM BY BENJY CHEN MD 01/05/2023, cystoscopy and left ureteral stent, VIN Wang >>OVERVIEW FOR CALCULUS OF KIDNEY WITH CALCULUS OF URETER WRITTEN ON 02/12/2020 9:48 AM BY BENJY CHEN MD Renal stone protocol [facility] in [facility] ER[facility] care: 6 mm stone at the right ureteral vesicle junction resulting in mild right-sided hydronephrosis. Bilateral nephrolithiasis also noted. Passed a stone in the ER Saw Dr. Monroe in [place]. Assessment & Plan (01/06/2024 7:35 PM CDT): Chronic, diagnosed about 4 years ago, he has had multiple procedures, and is still paying off the latest. However he reports no new symptoms of concern. He will keep his follow ups with Urology. Assessment & Plan (06/26/2023 4:43 AM CDT): He had moderate difficulty with kidney stones last December. These were treated at [facility] the [facility]. Eventually things turned out okay. Assessment & Plan (06/24/2023 12:16 PM CDT): >>ASSESSMENT AND PLAN FOR CALCULUS OF KIDNEY WITH CALCULUS OF URETER WRITTEN ON 02/20/2020 12:58 PM BY BENJY CHEN MD He had a kidney stone about three weeks ago. He was seen in the emergency room/urgent care in [place]. He passed it spontaneously and then followed up with Dr. Monroe. I recommend that he keep his urine dilute by drinking plenty of fluids. Addendum: see phone messages from after office visit; patient clarified that follow up with Dr. Monroe was by phone, visit is planned for March. Seborrheic dermatitis 06/12/2019 Overview (07/30/2019): Placed on dandruff shampoo and a cream, later made his eyes burn, so stopped using it. Assessment & Plan (01/06/2024 7:37 PM CDT): Chronic, present for more than four years. He was prescribed pimecrolimus cream for use as needed by his mounter smoking pipe, Dr. Gomez. It controls things well with only occasional use. He requested a refill which we sent in. He also uses OTC ketoconazole shampoo as needed. Assessment & Plan (07/30/2019 10:01 AM CDT): He was seen in dermatology by Dr. Gomez. What we thought was rosacea turned out to be seborrheic dermatitis and a contact dermatitis. It is well controlled now on his current regimen. Continue same. Colon polyps 02/26/2019 Overview (07/30/2019): Multiple tubular adenomas (cecal, ascending and transverse colon) and a rectal hyperplastic polyp resected, VIN Rios. Assessment & Plan (03/27/2021 3:39 PM POST ACUTE CARE NURSE): He had multiple tubular adenomas resected about 2 years ago. He denies any new bowel symptoms of concern. There is no blood in the stools. He will follow up with Dr. Jaeger. Assessment & Plan (02/12/2020 10:12 AM POST ACUTE CARE NURSE): He should be up-to-date on his colonoscopy. He will keep followups with Dr. Jaeger. Restless legs 08/26/2015 Assessment & Plan (01/03/2024 10:18 AM CDT): Chronic, present for more than five years. He sees Dr. Suárez who has him on gabapentin 400 mg at nighttime. He has residual symptoms, but apparently overall feels improved. Continue same. Assessment & Plan (06/25/2023 9:46 AM CDT): He takes gabapentin to control symptoms. It seems to work pretty well. Continue same. Assessment & Plan (03/21/2021 3:49 PM POST ACUTE CARE NURSE): He is doing better with gabapentin taken at bedtime prescribed by Dr. Suárez. Continue same. Assessment & Plan (02/12/2020 10:13 AM POST ACUTE CARE NURSE): He saw Dr. Suárez and was placed on gabapentin. Apparently it is helping quite a bit. He will keep his follow ups with Dr. Suárez. Insomnia 08/26/2015 Overview (12/13/2018): Has various aches and pains from sports as a youth. This affects his ability to sleep. If he wakes up at night, he has trouble falling back asleep. Practices good sleep hygiene. Has good weeks and bad weeks. Poor sleep affects his mood. Assessment & Plan (07/30/2019 10:00 AM CDT): He has a long history of sleep problems, and was also diagnosed with restless legs during one of his sleep studies years ago. However the, there was no sleep apnea or narcolepsy. We referred him to Dr. Suárez put him on gabapentin, and he is sleeping much better. A lot of his somatic symptoms have improved. It sounds like his mood has improved. Continue current therapy and keep followups with Dr. Suárez. Assessment & Plan (01/22/2019 10:13 AM CDT): He continues to have trouble with sleeping and paradoxically with hypersomnia. He has an appointment to see Dr. Suárez in November, but says he may have to reschedule it due to work requirements. Hopefully we will get this thoroughly evaluated soon. I did review a sleep study performed about 10 years ago at [facility], and he did not meet criteria for narcolepsy. Assessment & Plan (12/22/2018 2:57 PM CDT): He has longstanding insomnia. He generally falls asleep without difficulty, but wakes up, either because of aches and pains or because he has to urinate, and he cannot fall back asleep. He has been up since 02:30 this morning. Medications have not been helpful. We will get him in with Dr. Suárez for further evaluation. Daytime somnolence 08/26/2015 Overview (07/30/2019): Had sleep studies in [place] and [facility]. Has slight restless leg syndrome, no sleep apnea or narcolepsy. Sleep study, MLS, video all normal, 09/13/15, [facility]. See scanned report. Improved with treatment of restless leg syndrome started by Dr. Suárez in 2018. Assessment & Plan (08/13/2020 11:10 AM CDT): He has restless leg syndrome. He sees Dr. Suárez. He takes gabapentin which initially helped quite a bit but now he finds he is having daytime sleepiness again. He will keep his follow ups with Dr. Suárez. Assessment & Plan (12/22/2018 2:56 PM CDT): He has a long history daytime fatigue and somnolence. He sometimes almost falls asleep while driving. He had a sleep study on two separate occasions, and some mild restless leg syndrome was diagnosed. He did not have obstructive sleep apnea or narcolepsy. No treatment was recommended. Symptoms seem to be persistent if not worsening. He also has insomnia. We will have him see Dr. Suárez for further evaluation and possible treatment. Persistent mood disorder 08/26/2015 Overview (07/30/2019): Mostly anxiety, with intermittent/past depressive symptoms. Assessment & Plan (01/03/2024 10:17 AM CDT): Chronic, present for decades, improving as he gets older. He no longer wants to take duloxetine 20 mg daily so we removed it from his list. If he has a flare of mood problems he will call. Assessment & Plan (06/25/2023 9:46 AM CDT): He says his mood is good on Cymbalta. Continue same. Assessment & Plan (06/21/2022 4:20 PM CDT): He says his mood is good. He is sleeping well. The medical marijuana helps him relax at night. He is also on duloxetine 20 mg daily. Continue same, and follow-up annually. Assessment & Plan (10/15/2021 9:57 AM CDT): He is doing okay with his mood treated with duloxetine. Continue same. Assessment & Plan (03/21/2021 3:49 PM POST ACUTE CARE NURSE): He thinks his mood is a little better taking a low dose of duloxetine which also helps his aches and pains during the daytime. He still has a lot of muscle aches and pains at nighttime which interferes with sleep. We will monitor clinically. Assessment & Plan (08/13/2020 11:09 AM CDT): He seems to be doing pretty well with his mood. He is on duloxetine for this as well as nonspecific myalgia like symptoms. Continue same and follow-up in six months. Assessment & Plan (02/12/2020 10:13 AM POST ACUTE CARE NURSE): He seems to be doing well with his mood. He is on Cymbalta and supportive care. Continue same. Assessment & Plan (07/30/2019 10:01 AM CDT): He is doing much better with his mood. Some of this is due to better sleep patterns, and some probably due to use of low-dose Cymbalta for mood and for muscle aches and pains. Continue same. Anxiety 08/26/2015 Overview (12/13/2018): Was seeing a psychiatrist, was on medications for ADD and depression, but took a drug holiday for sleep studies, and felt better, so he stopped taking depression medications. Assessment & Plan (12/22/2018 2:54 PM CDT): He has longstanding issues with depression and anxiety. For awhile he was seeing a psychiatrist and was taking various medications including Cymbalta which caused some initial worsening of symptoms but then helped him quite a bit. However, he then took a drug holiday for some sleep studies, and a lot of his somatic symptoms such as diffuse myalgias improved, so he stopped taking the depression medication. He still has some issues with anxiety and mood, but tries to deal with them through meditation and other methods learned in cognitive behavioral therapy. We will see him back in one month. Arthralgia 09/23/2014 Assessment & Plan (02/20/2020 12:54 PM POST ACUTE CARE NURSE): Multiple joints hurt. He was in sports when he was younger, so some joint pains could be attributed to past minor injuries. Lately his left hip has been bothering him a lot but the pain has subsided. He thinks his mother and sister have rheumatoid arthritis. We will check a CRP and anti CCP. Consider referral as needed. Benign prostatic hyperplasia with weak urinary s tream 12/24/2013 Overview (08/29/2021): Sees Dr. Monroe. PSA 1.75 on 04/08/19, [facility]. Second opinion from Dr. Migdalia Olson, 04/21/2021. S/P Rezum May 2021, improved. Assessment & Plan (01/03/2024 10:14 AM CDT): Chronic, present for more than 10 years, significantly improved since he had embolization of prostate arteries in September. He is experiencing mild stress incontinence, otherwise seems to have recovered well. He will keep his follow ups with Dr. Olson who checks his PSA levels. Assessment & Plan (06/25/2023 9:48 AM CDT): Prostate symptoms have worsened again, mostly nocturia but also frequency and urgency during the daytime. It is interfering with sleep and making him tired. He also had a kidney stone last December that was treated with lithotripsy and a stent. Currently he denies dysuria or hematuria. He will follow-up with Dr. Coy who referred him to a specialist that performs prostate embolization with microspheres, but the procedure has not been scheduled yet. He took tamsulosin when he had his kidney stone, but is not currently taking this medication although he has it on hand. Assessment & Plan (06/21/2022 4:17 PM CDT): He is doing much better since having thermal treatment of his prostate about a year ago. He follows up with Dr. Olson once a year, next visit is in November. Assessment & Plan (10/14/2021 4:03 PM CDT): He had a thermal ablation of his prostate in May. He is voiding much better. No new urinary symptoms reported. He will follow-up with Dr. Olson. Assessment & Plan (05/16/2021 9:48 AM POST ACUTE CARE NURSE): Scanned office note, Dr. Olson, 04/21/2021. Assessment & Plan (03/21/2021 3:54 PM POST ACUTE CARE NURSE): He continues to have nocturia times 1-2. Denies dysuria or hematuria. He sees Dr. Monroe in about one month. He will have a follow-up PSA and rectal exam at that time. He is considering some sort of procedure to shrink the prostate so he does not have to take medications including Flomax and Proscar. He brought up concerns about possible low testosterone. He has experienced a slight decrease in libido. He discussed these with who did not think symptoms warranted evaluation of testosterone levels. The patient does not want to pursue anything along these lines right now. Monitor clinically. Assessment & Plan (08/13/2020 11:11 AM CDT): He had a kidney stone in December, otherwise denies any new urologic symptoms. He continues to see his urologist, Dr. Monroe, last visit was in March 2020. Repeat PSA was normal. Assessment & Plan (02/12/2020 10:11 AM POST ACUTE CARE NURSE): He sees Dr. Monroe annually. He is on finasteride. He recently had a kidney stone, see discussion elsewhere. He will keep his follow ups with Urology. Assessment & Plan (07/30/2019 9:57 AM CDT): He is on finasteride, denies any new urinary symptoms of concern. He is followed by Dr. Monroe in [place]. Continue same. Assessment & Plan (01/22/2019 10:13 AM CDT): He sees Dr. Monroe twice a year. He is on Flomax. Continue same. Myalgia 12/24/2008 Overview (01/22/2019): Unknown cause, previously evaluated with negative findings per patient. Assessment & Plan (10/15/2021 9:59 AM CDT): Muscle aches and pains continue bother him but he gets along pretty well. Exercise helps the most. He thinks he may benefit from the medical marijuana program. We will get him signed up. Assessment & Plan (08/13/2020 11:09 AM CDT): He continues to struggle with myalgias. He is trying to get back into exercise. Gabapentin and duloxetine are probably helping a little bit although symptoms still fluctuate. Assessment & Plan (01/22/2019 10:16 AM CDT): He continues to have diffuse aches and pains. He says it has been thoroughly evaluated in the past, but we have received no additional information to speak of on past workup. His general labs are completely normal. He has been on Cymbalta in the past for these symptoms, and it did seem to help, so we will give that another try. I did suggest that he start Cymbalta two weeks after starting the Lipitor. Follow- up in six months. Cervical arthritis 12/24/2008 Overview (01/22/2019): Dr. Rivera and Dr. Rolando Arenas Mixed hyperlipidemia 11/24/2008 Overview (12/13/2018): Formerly on simvastatin and ezetimibe. Assessment & Plan (01/03/2024 10:16 AM CDT): Chronic, total cholesterol and HDL are not at goal, but LDL is significantly improved on atorvastatin 40 mg daily. Triglycerides are moderately high, probably reflecting a greasy sandwich he had the night before labs were drawn. He is working on reforming his diet. He is tolerating the atorvastatin. We will see him back in six months with a follow-up lipid panel. Lab Results Component Value Date CHOL 334 (H) 12/27/2023 CHOL 338 (H) 06/21/2023 CHOL 275 (H) 10/14/2021 Lab Results Component Value Date HDL 34 (L) 12/27/2023 HDL 44 06/21/2023 HDL 45 10/14/2021 Lab Results Component Value Date LDLCALC See Comment 12/27/2023 LDLCALC See Comment 06/21/2023 LDLCALC 204 (H) 10/14/2021 LDLDIRECT 85 12/27/2023 LDLDIRECT 126 06/21/2023 LDLDIRECT 91 06/19/2022 SCRLDL 157 (A) 02/15/2020 Lab Results Component Value Date TRIG 694 (H) 12/27/2023 TRIG 411 (H) 06/21/2023 TRIG 128 10/14/2021 Assessment & Plan (06/26/2023 4:41 AM CDT): Lipid profile is significantly worse than before despite taking moderate dose generic Lipitor. He admits to straying from his diet, although he does eat mostly salads during the daytime. He plans to work on this and would like to repeat a profile before his next visit in six months. Lab Results Component Value Date CHOL 338 (H) 06/21/2023 CHOL 275 (H) 10/14/2021 Lab Results Component Value Date HDL 44 06/21/2023 HDL 45 10/14/2021 Lab Results Component Value Date LDLCALC See Comment 06/21/2023 LDLCALC 204 (H) 10/14/2021 LDLDIRECT 126 06/21/2023 LDLDIRECT 91 06/19/2022 SCRLDL 157 (A) 02/15/2020 Lab Results Component Value Date TRIG 411 (H) 06/21/2023 TRIG 128 10/14/2021 Lab Results Component Value Date ALT 44 06/21/2023 AST 46 06/21/2023 ALKPHOS 79 06/21/2023 BILITOT 0.4 06/21/2023 Assessment & Plan (06/21/2022 4:18 PM CDT): He is on generic Lipitor, tolerating well. LDL dropped pretty dramatically. We will see him back annually with a complete lipid profile. Lab Results Component Value Date CHOL 275 (H) 10/14/2021 Lab Results Component Value Date HDL 45 10/14/2021 Lab Results Component Value Date LDLCALC 204 (H) 10/14/2021 LDLDIRECT 91 06/19/2022 SCRLDL 157 (A) 02/15/2020 Lab Results Component Value Date TRIG 128 10/14/2021 Assessment & Plan (10/15/2021 9:55 AM CDT): He fasted today, so we will check follow up lipids to give him feedback on his diet and therapeutic efficacy of generic Lipitor. Assessment & Plan (03/21/2021 3:51 PM POST ACUTE CARE NURSE): He brought by or rather pulled up recent employer sponsored labs on his cellphone. He has had a significant deterioration in his cholesterol profile with an increase in the total cholesterol to about 338, decrease in HDL to about 44. LDL remains low at about 58 while taking generic Lipitor. He plans to reform his diet, go back to the gym, and wants to repeat his lipids in about three months. Assessment & Plan (08/13/2020 11:10 AM CDT): He is tolerating generic Lipitor. Continue same. We will check follow-up lipids before his next visit in six months. Assessment & Plan (02/12/2020 10:13 AM POST ACUTE CARE NURSE): He is currently on generic Lipitor, seems to be tolerating it well although his thinks the medicine might be contributing to his joint pains. We will check a follow-up lipid panel. Assessment & Plan (07/30/2019 10:00 AM CDT): He is on generic Lipitor, seems to be tolerating it well. A lot of this muscle aches and pains have improved with better sleep and with use of duloxetine. We will check a follow-up lipid profile before his next visit in about six months. Assessment & Plan (02/02/2019 2:07 PM POST ACUTE CARE NURSE): He had a cholesterol profile done at [facility]. Total cholesterol is 308, triglycerides 318, HDL 47, and LDL 197. On the [employer] risk calculator, 10 year cardiovascular risk is 10%. Is a little lower on the ACC calculator. However, with an LDL of 197, I think he should be on cholesterol medicine if he can tolerate it. He used to take a statin but stopped it due to perceived side-effects, mainly malaise. He is willing to give it another try. We will see him back in six months and probably check another LDL at that time if he is compliant with medication. Assessment & Plan (12/22/2018 2:58 PM CDT): He has history of high cholesterol and previously took simvastatin and ezetimibe. However, he took a drug holiday because of aches and pains. He never went back to taking the medications even though he still has lots of aches and pains, suggesting that these symptoms are not side-effects of the cholesterol medicine, but are due to something else. We will check a baseline lipid panel and proceed with recommendations from there. Other fatigue 11/24/2008 Assessment & Plan (07/03/2022 7:48 AM CDT): He continues to struggle with fatigue. He is sleeping better since starting medical marijuana and his muscle aches and pains are much better, 50-70% improved. We will check some follow-up labs for B12, TSH and CBC. TSH seven years ago was minimally elevated, and T4 was normal at that time. Assessment & Plan (01/22/2019 10:17 AM CDT): He continues to have a lot of fatigue. It seems to be related to his muscle aches and pains as well as his mood problems. He apparently has seen Dr. Mayes in the past. We will try to get those records for review. Assessment & Plan (12/13/2018 11:45 AM CDT): He has longstanding constant fatigue. He has to struggle to overcome it. He has not had screening labs for awhile, so we will get some and have him follow up in one month. History of tobacco use 09/23/1985 Resolved Problems Problem Noted Date Diagnosed Date Resolved Date Rosacea 06/02/2019 07/30/2019 Overview (07/30/2019): Saw Dr. Gomez, had a biopsy,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
--- OUTSIDE RECORDS SUMMARY | 2024-12-23 09:50 | XMS_ITS | Clinical Summary ---
Author Organization [employer] [address] [place] [address] [address] [address] [place] [address] Care Team Providers Care Recreation Leader Name Role Phone Unavailable Primary Care Provider Unavailabl e Social History Tobacco Use Types Packs/Day Years Used Date Smoking Tobacco: Never Assessed Sex and Gender Information Value Date Recorded Sex Assigned at Not on file Legal Sex Male 12:18 PM CDT Gender Identity Not on file Sexual Orientation Not on file Plan of Treatment Health Maintenance Due Date Last Done Comments DTAP/TDAP/TD VACCINES (1 - Tdap) 1987 HEPATITIS B VACCINES (1 of 3 - 19+ 3-dose series) 02/25 COLORECTAL SCREENING 2013 Colorectal Cancer Screening 2013 FIT-DNA Q 3 years 2013 FIT/FOBT Q 1 year 2013 Flex Sig/CT Colonography Q 5 years 2013 ZOSTER VACCINE (1 of 2) 2018 INFLUENZA VACCINE (#1) 2024 Insurance AETNA CHOICE POS II
== END 2024-12-23 09:10 | disposition home or self-care (01) ==
LOC: ANHIMG 09:20
PROVIDERS: PCP Internal Medicine Infectious Disease; Visit Provider Urology
DX: N20.0 Calculus of kidney (principal)
CPT/HCPCS: 74018